=== PATIENT | male | born 1975 | race Caucasian/White ===

== ENCOUNTER 2020-06-09 13:05 | Emergency (ER) | payer MEDICAID, SELFPAY ==
[~2020-06-09] VITALS: Ht 165.1 cm; Wt 68.0 kg
[2020-06-09 13:15] VITALS: Ht 165.1 cm; Wt 68.0 kg
[2020-06-09 14:03] LABS: BASOPHIL % 1.4 % (0.2-1.5); PLATELET COUNT 391 x10^3mcL (152-348)
[2020-06-09 14:05] LABS: RED CELL DISTRIBUTION WIDTH 18.8 % (12.1-16.2)
[2020-06-09 15:50] LABS: CALCIUM 8.8 mg/dL (8.5-10.1); CARBON DIOXIDE 26.1 mmol/L (21-32); CHLORIDE SERUM 96 mmol/L (98-107); CREATININE SERUM 0.8 mg/dL (0.7-1.3); GFR1 > 60 mL/min; GLUCOSE SERUM 88 mg/dL (74-106); POTASSIUM SERUM 4.1 mmol/L (3.5-5.1); SODIUM SERUM 132 mmol/L (136-145)
[2020-06-09 15:55] LABS: ALKALINE PHOSPHATASE 67 U/L (46-116); ALT/SGPT 38 U/L (16-63); AST/SGOT 28 U/L (15-37); BILIRUBIN TOTAL 0.68 mg/dL (0.20-1.00); TOTAL PROTEIN, SERUM 7.4 g/dL (6.4-8.2)
[2020-06-09 15:56] LABS: ALBUMIN 3.3 g/dL (3.4-5.0)
[2020-06-09 16:36] VITALS: BP 115/79
== END 2020-06-09 16:36 | disposition home or self-care (01) ==
LOC: ED 13:05
PROVIDERS: Student in an Organized Health Care Education/Training Program
DX: J45.901 Unspecified asthma with (acute) exacerbation (principal); J18.9 Pneumonia, unspecified organism; Z88.6 Allergy status to analgesic agent; Z88.8 Allergy status to other drugs, medicaments and biological substances
CPT/HCPCS: J2920; J3535; J7644